=== PATIENT | female | born 1940 | race Caucasian/White ===

== ENCOUNTER → 2016-10-26 20:46 | Outpatient (CLI) | payer MEDICARE ==
[2015-09-11 10:18] VITALS: BMI 38.6
[~2016-10-26 20:46] MED LIST: ASPIRIN81 MG PO; BETAPACE 80 MG80 MG PO; GLUCOPHAGE500 MG PO; LOPRESSOR25 MG PO; PLAVIX75 MG PO
[2016-10-26 22:22] LABS: APPEARANCE HAZY (CLEAR); BACTERIA MODERATE /hpf (NONE SEEN); BILIRUBIN NEGATIVE (NEGATIVE); COLOR YELLOW (YELLOW); EPITHELIAL CELLS OCC /hpf (0-5); GLUCOSE NEGATIVE (NEGATIVE); KETONE NEGATIVE (NEGATIVE); LEUKOCYTE ESTERASE 2+ (NEGATIVE); NITRITE POSITIVE (NEGATIVE); PROTEIN TRACE mg/dL (NEGATIVE); RED CELLS - URINE OCC /hpf (0-5); UROBILINOGEN NORMAL (NORMAL); WHITE CELLS - URINE >50 /hpf (0-5)
== END | disposition home or self-care (01) ==
LOC: D.LABREF 20:46
PROVIDERS: Urology
DX: N39.0 Urinary tract infection, site not specified (principal)

== ENCOUNTER 2016-10-30 04:10 | Emergency (ER) | payer MEDICARE ==
[2015-09-11 10:18] VITALS: BMI 38.6
== END 2016-10-30 05:30 | disposition home or self-care (01) ==
LOC: D.ER 04:10
DX: S91.312A Laceration without foreign body, left foot, initial encounter (principal); W26.9XXA Contact with unspecified sharp object(s), initial encounter; Y93.89 Activity, other specified; Y92.89 Other specified places as the place of occurrence of the external cause; I10 Essential (primary) hypertension; E11.40 Type 2 diabetes mellitus with diabetic neuropathy, unspecified

== ENCOUNTER → 2016-11-02 13:36 | Outpatient (CLI) | payer MEDICARE ==
[2015-09-11 10:18] VITALS: BMI 38.6
== END | disposition home or self-care (01) ==
LOC: D.CT 13:36
DX: R31.9 Hematuria, unspecified (principal); Z87.891 Personal history of nicotine dependence

== ENCOUNTER → 2016-11-16 20:54 | Outpatient (CLI) | payer MEDICARE ==
[2015-09-11 10:18] VITALS: BMI 38.6
[2016-11-16 23:44] LABS: APPEARANCE CLOUDY (CLEAR); BILIRUBIN NEGATIVE (NEGATIVE); COLOR YELLOW (YELLOW); GLUCOSE NEGATIVE (NEGATIVE); KETONE NEGATIVE (NEGATIVE); LEUKOCYTE ESTERASE 2+ (NEGATIVE); NITRITE POSITIVE (NEGATIVE); PROTEIN TRACE mg/dL (NEGATIVE); SPECIFIC GRAVITY 1.015 (1.005-1.020); UROBILINOGEN NORMAL (NORMAL)
[2016-11-16 23:52] LABS: BACTERIA MANY /hpf (NONE SEEN); EPITHELIAL CELLS 0-5 /hpf (0-5); RED CELLS - URINE >50 /hpf (0-5); WHITE CELLS - URINE >50 /hpf (0-5)
== END | disposition home or self-care (01) ==
LOC: D.LABREF 20:54
PROVIDERS: Urology
DX: N39.0 Urinary tract infection, site not specified (principal)

== ENCOUNTER 2016-12-15 05:50 | Day surgery (SDC) | payer MEDICARE ==
[2016-12-14 12:41] LABS: HEMATOCRIT 40.9 % (36.0-48.0); HEMOGLOBIN 13.9 g/dL (12-16); MCH 31.8 pg (26.0-34.0); MCV 93.6 fL (80.0-100.0); MEAN PLATELET VOLUME 11.3 fL (7.4-10.4); RBC 4.37 10x6/uL (4.00-5.40); RDW 12.8 % (11.5-14.5); WBC 5.6 10x3/uL (4.8-10.8)
[2016-12-14 13:01] LABS: ANION GAP 16.1 mmol/L (8-16); CARBON DIOXIDE 23.2 mmol/L (21.0-32.0); CREATININE - SERUM 1.2 mg/dL (0.6-1.3); POTASSIUM - SERUM 4.3 mmol/L (3.5-5.1)
[2016-12-15] VITALS (9 sets, daily range): BP systolic 127–186; BP diastolic 57–78; Ht 160 cm; Wt 76.8 kg
[~2016-12-15] VITALS: Ht 160 cm; Wt 76.8 kg
--- NOTE | ~2016-12-15 | HEMODYNAMI ---
PATIENT:JUANITA FLORES MEDICAL RECORD: [id number] : 44 LOCATION:[facility] ADMISSION DATE: 12/15/16 Generatedon:12/15/20169:06 Patient name: JUANITA FLORES Patient #: [id number] SSN: : Date of study: 12/15/2016 Page: Of Hemodynamic Procedure Report Patient Data Patient Demographics Procedure consent was obtained First Name: JUANITA Gender: Female Last Name: SANDRA : 1940 Middle Initial: M Age: 76 year(s) Patient #: [id number] Race: Additional ID: [id number] Contact details [address]: [address] [place] [address] rd State: [place] City: [place] Zip code: [address] Admission Admission Data Admission Date: 12/15/2016 Admission Time: 5:50 Procedure Procedure Types Cath Procedure Peripheral Cath Diagnostic Procedure Miscellaneous Procedure Description Procedure Date Procedure Date: 12/15/2016 Procedure Start Time: 8:45 Procedure Staff Name Function Jaime Jones MD Performing Physician Zulema Urena RT Scrub Keila Baldwin RN Nurse Mahesh Quinn RT Monitor Procedure Data Cath Procedure Fluoroscopy Diagnostic fluoroscopy Total fluoroscopy Time: 2.3 time: 2.3 min min Diagnostic fluoroscopy Total fluoroscopy dose: 55 dose: 55 mGy mGy Contrast Material Contrast Material Type Amount (ml) Isovue 300 5 Procedure Medications Medication Administration Route Dosage Fentanyl I.V. 50 mcg Versed I.V. 1 mg Fentanyl I.V. 50 mcg unlisted medication 900 mg Hemodynamics Rest Heart Rate: 263 (bpm) Snapshots Pre Cath Intra NCS Post Cath Vital Signs Time Heart Resp SPO2 NIBP (mmHg) Rhythm Pain Sedation Rate (ipm) (%) Status Level (bpm) 8:27:08 79 11 Measuring NSR 0 (11) 10(A) , No pain 8:28:01 74 23 171/82(129) NSR 0 (11) 10(A) , No pain 8:33:00 79 10 99 Measuring NSR 0 (11) 10(A) , No pain 8:34:22 77 11 100 161/77(123) NSR 0 (11) 10(A) , No pain 8:38:52 75 12 100 162/75(108) NSR 0 (11) 10(A) , No pain 8:43:16 77 13 100 150/73(114) NSR 0 (11) 10(A) , No pain 8:47:37 71 16 100 154/75(103) NSR 0 (11) 10(A) , No pain 8:52:03 74 13 100 157/73(115) NSR 0 (11) 9(A) , No pain 8:56:27 79 15 100 151/66(103) NSR 0 (11) 9(A) , No pain 9:00:43 77 20 100 147/73(112) NSR 0 (11) 10(A) , No pain 9:05:05 75 100 132/62(103) NSR 0 (11) 10(A) , No pain Medications Time Medication Route Dose Verified Delivered Reason Notes Effectivenes s by by 8:10:16 clindamycin IV 900 Keila Keila mg Denny Denny RN RN 8:45:28 Fentanyl I.V. 50 Keila Keila for mcg Denny Denny sedation RN RN 8:50:50 Versed I.V. 1 mg Keila Keila for Denny Denny sedation RN RN 8:50:55 Fentanyl I.V. 50 Keila Keila for mcg Denny Denny sedation RN rider ticket worker Log Time Note 8:09:34 Mahesh Quinn RT (R) (CV) sent for patient. Start room use. 8:09:40 Time tracking: Regular hours 8:09:47 Plan of Care:Hemodynamics will remain stable., Cardiac rhythm will remain stable., Comfort level will be maintained., Respiratory function will remain adequate., Patient/ family verbilizes understanding of procedure., Procedure tolerated without complication., Recovers from procedure without complications.. 8:09:54 Patient received from Outpatients to IR Alert and oriented. Tansferred to table in Prone position. 8:09:55 Correct patient and procedure confirmed by team. 8:09:56 Signed procedure consent form obtained from patient. 8:09:57 ECG and BP/O2 sat monitors applied to patient. 8:10:00 Full Disclosure recording started 8:10:04 H&P Date Dictated: 12/15/2016 H&P Addendum completed by physician on day of procedure. (MUST COMPLETE FOR ALL OUTPATIENTS). 8:10:05 Pre-procedure instructions explained to patient. 8:10:05 Pre-op teaching completed and patient verbalized understanding. 8:10:09 Family in waiting room. 8:10:11 Patient NPO since Midnight. 8:10:14 Is the patient allergic to Iodine/contrast media? No. 8:10:16 clindamycin 900 mg IV was administered by Keila Baldwin RN; ; 8:10:20 Is patient on blood thinner?No 8:10:22 Patient diabetic? No. 8:10:25 8:10:26 ----Pre-sedation anethsthesia assessment.---- 8:11:03 Previous problem with sedation/anesthesia? No ? 8:11:10 Snore? Yes 8:11:14 Sleep apnea? No 8:11:16 Deviated septum? No 8:11:17 Opens mouth fully? Yes 8:11:18 Sticks out tongue? Yes 8:11:22 Airway obstruction? No ? 8:11:23 Dentures? Yes ? 8:11:26 8:11:35 Patient pain scale 0/10 no pain. 8:11:49 Use device set IR Diagnostic 8:11:51 Sterile Angiographic Pack opened to sterile field. 8:11:52 Bag Decanter opened to sterile field. 8:25:19 Vital chart was started 8:25:34 Baseline sample Acquired. 8:25:37 Rhythm: sinus rhythm 8:25:44 Sharps counted by scrub and verified by R.N. 8::44 Alarms reviewed by R. N. 8:25:51 Left abdomen area was prepped with chlora-prep and draped in sterile fashion 8:25:58 IV patent on arrival in right forearm with 0.9% NaCl at [facility]. 8:43:44 Physician arrived 8::44 --------ALL STOP TIME OUT------ 8:43:45 Final Timeout: patient, procedure, and site verified with staff and physician. All members of the team are in agreement. 8::51 Left abdomen site verified by team. 8:43:56 Physical assessment completed. ASA score P 2 - A patient with mild systemic disease as per Jaime Jones MD. 8:44:00 Sedation plan: IV Moderate Sedation Versed, Fentanyl 8:45:28 Fentanyl 50 mcg I.V. was administered by Keila Baldwin RN; for sedation; 8:45:40 Procedure started. 8:45:45 Local anesthetic to Abdominal area with Lidocaine 1% by Jaime Jones MD.INITIAL ACCESS ONLY 8:48:26 KIT, INTRODUCER ACCUSTICK II W/C opened to sterile field. 8:50:50 Versed 1 mg I.V. was administered by Keila Baldwin RN; for sedation; 8:50:55 Fentanyl 50 mcg I.V. was administered by Keila Baldwin RN; for sedation; 8:57:26 Terumo 5FR STRAIGHT 65CM glide catheter opened to sterile field. 9:00:51 Procedure ended.(Physican Out) 9:02:19 Fluoroscopy time 02.30 minutes. 9:02:28 Fluoroscopy dose: 55 mGy 9:02:28 Flurop Dose total: 55 9:02:38 Contrast amount:Isovue 300 5ml. 9:02:40 Insertion/operative site no bleeding no hematoma. 9:02:46 Post Abdominal area:stable 9:02:55 Post-procedure physical assessment completed. ASA score P 2 - A patient with mild systemic disease as per Jaime Jones MD. 9:02:58 Post procedure rhythm: unchanged. 9:03:01 Procedure and supply charges have been captured, reviewed, submitted and are correct. 9:04:58 Report given to Outpatients. 9:05:03 Patient transfered to Outpatients with Stretcher. 9:06:14 Vital chart was stopped Device Usage Item Name Manufacture Quantity Catalog Hospital Part Current Minimal Lot# / Number Charge Number Stock Stock Serial# Code Sterile [place] 1 [id number] 5 Angiographic Health Pack Bag Decanter Microtek 1 2002S [id number] 5 [employer] KIT, [place] 1 [id number] 5 INTRODUCER Scientific ACCUSTICK II W/C Terumo 5FR Terumo 1 [id number] 5 STRAIGHT 65CM glide catheter Signature Audit [place] Stage Time Signature Unsigned Intra-Procedure 12/15/2016 Mahesh 9:06:04 AM [place] RT (R) (CV) Signatures Monitor : Mahesh Signature : [place] RT Date : Time : [id number] [place] [address]
[~2016-12-15 05:50] MED LIST changes: +BACTRIM DS TABL1 TAB PO; +LOSARTAN POTASS25 MG PO
[2016-12-15 07:53] LABS: APTT 27.8 SECONDS (22.8-39.4); INR 1.08 (0.85-1.17); PROTIME 13.9 SECONDS (11.6-15.0)
--- NOTE | 2016-12-15 16:52 | NUR ---
NEPHRESTOMY TUBE TO LEFT FLANK TO MARS BAG FOR DRAINAGE
--- NOTE | 2016-12-15 17:30 | NUR ---
RECEIVED TO ROOM 2213 AT THIS TIME FROM RECOVERY VIA STRETCHER. NEPHROSTOMY TUBE PATENT AND MARS PATENT WITH BOTH DRAINING TO GRAVITY BAGS. ASSESSMENT AND HISTORY OBTAINED PER FLOWSHEET. PASSWORD SET UP FOR HIPPA. ALERT AND ORIENTED WITH VITAL SIGNS STABLE. ORIENTED PT TO ROOM AND CALL LIGHT. WILL CONTINUE WITH PLAN OF CARE ORDERED.
--- NOTE | 2016-12-15 17:46 | NUR ---
PRN NORCO-5 ADMINISTERED FOR POST OP PAIN 12/12. DENIES FURTHER NEEDS. CALL LIGHT IN REACH, WILL CONTINUE WITH PLAN OF CARE.
[2016-12-16] VITALS: BP 137/51
--- NOTE | 2016-12-16 01:23 | NUR ---
PT RESTING QUIETLY, EYE CLOSED. GAVE PAIN MED FOR LEFT BACK PAIN. NEPHROSTOMY DRAINING BLOODY DRAINAGE. URINE IN MARS IN BLOOD TINGED. WILL CONTINUE TO MONITOR.
[2016-12-16 04:00] VITALS: BP 91/58
--- NOTE | 2016-12-16 06:15 | NUR ---
REMOVED MARS PER ORDER @ 0615. DOCUMENTED URINE OUTPUT PER FLOWSHEET.
--- NOTE | 2016-12-16 07:33 | NUR ---
AWAKE AND ALERT AT THIS TIME. ASSESSMENT PERFORMED PER FLOWSHEET. IV TO LEFT HAND PATENT. DAUGHTER AT BEDSIDE AND CALL LIGHT IN REACH. LEFT NEPHROSTOMY BAG TO GRAVITY DRAINAGE. WILL CONTINUE WITH PLAN OF CARE.
[2016-12-16 08:16] VITALS: BP 147/55
--- NOTE | 2016-12-16 08:50 | NUR ---
PT AMBULATED X2 AROUND NURSES STATION WITH MINIMAL ASSISTANCE. LEFT NEPHROSTOMY TUBE REMAINS PATENT WITH DRESSING C/D/I. DAUGHTER AT BEDSIDE. INSTRUCTED PT THAT SHE NEEDED TO VOID BEFORE DISCHARGE AND SHE UNDERSTOOD. INCENTIVE SPIROMETER IN USE WITH 2,000 ML OF INSPIRATORY VOLUME.
[2016-12-16] MEDS ORDERED: HYDROCODON-ACE1 EAC7 PO (09:02)
--- NOTE | 2016-12-16 09:49 | NUR ---
CM met with patient to assess discharge planning needs. Patient states she lives with her daughter Zora ([phone]) where she is independent. She plans to return there and her friend Lynne ([phone]) will be the one driving her home. She denies any use of any DME or HH services and refuses HH at this time. Patient being discharge today. PCP:[facility]: [facility] Zora (daughter) [phone]
--- NOTE | 2016-12-16 10:00 | NUR ---
VOIDED 300ML OF BLOOD TINGED URINE AT THIS TIME. INSTRUCTED PT AND DAUGHTER AND PROPER EMPTYING OF NEPHROSTOMY BAG. IV TO LEFT HAND D/C WITH CATH TIP INTACT AND DISCHARGE PAPERWORK REVIEWED. PT AND DAUGHTER DENY QUESTIONS OR CONCERNS. WILL D/C HOME WITH DAUGHTER.
== END 2016-12-16 10:08 | disposition home or self-care (01) ==
LOC: D.OPS 05:50 → D.MS 05:50 → D.OPS 08:00 → D.PAN 08:00 → D.OPS 09:00 → D.MS 17:03 → D.OPS 12-16 10:08
PROVIDERS: Anesthesiology; Specialist; Urology
DX: N20.0 Calculus of kidney (principal); Z87.440 Personal history of urinary (tract) infections; Z01.812 Encounter for preprocedural laboratory examination